=== PATIENT | female | born 1940 | race Caucasian/White ===

== ENCOUNTER 2018-10-16 23:45 | Inpatient (IN) | payer MEDICARE ==
[~2018-10-16] VITALS: Ht 165.1 cm; Wt 68.0 kg
[2018-10-16] MEDS ORDERED: acetaminophen 325mg tablet PO STA (23:54)
[2018-10-16] MEDS ORDERED: normal saline 1000ML IV soln IV ONE (23:55)
[2018-10-16] MEDS ORDERED: CefTRIAXone 2gm/D5W 50ml 50 ML IV ONE (23:55)
[2018-10-17 00:20] LABS: BASOPHILS # (AUTO) 0.1 X10'3 (0-0.2); BASOPHILS % (AUTO) 0.5 % (0-1); EOSINOPHILS # (AUTO) 0.1 X10'3 (0-0.9); EOSINOPHILS % (AUTO) 0.3 % (0-6); HEMATOCRIT 39.6 % (35.0-45.0); HEMOGLOBIN 13.3 g/dl (12.0-16.0); MEAN CORPUSCULAR HEMOGLOBIN 29.7 PG (27.0-31.0); MEAN CORPUSCULAR HGB CONC 33.6 g/dL (33.0-36.5); MEAN CORPUSCULAR VOLUME 88.4 FL (78-98); MEAN PLATELET VOLUME 6.8 FL (7.4-10.4); MONOCYTES # (AUTO) 0.9 X10'3 (0-0.9); MONOCYTES % (AUTO) 3.5 % (2-12); NEUTROPHILS # (AUTO) 22.8 X10'3 (1.8-7.7); NEUTROPHILS % (AUTO) 91.7 % (42-75); PLATELET COUNT 313 X10'3 (140-440); RED BLOOD COUNT 4.48 X10'6 (4.20-5.60); RED CELL DISTRIBUTION WIDTH 13.4 % (11.5-14.5); WHITE BLOOD COUNT 24.8 X10'3 (4.5-11.0)
[2018-10-17 00:38] LABS: ALANINE AMINOTRANSFERASE 14 U/L (12-78); ALBUMIN 3.6 G/DL (3.4-5.0); ALBUMIN/GLOBULIN RATIO 0.9 (1.1-1.5); ALKALINE PHOSPHATASE 117 IU/L (46-116); ANION GAP 11 (8-16); ASPARTATE AMINO TRANSFERASE 11 U/L (10-37); BILIRUBIN,TOTAL 0.7 MG/DL (0.1-1.0); BLOOD UREA NITROGEN 13 MG/DL (7-18); BUN/CREATININE RATIO 13.8 (6.6-38.0); CHLORIDE 104 MMOL/L (99-107); CREATININE 0.94 MG/DL (0.40-0.90); GLUCOSE 153 MG/DL (70-104); MAGNESIUM 1.8 MG/DL (1.5-2.4); POTASSIUM 3.4 MMOL/L (3.5-5.1); SODIUM 141 MMOL/L (135-145); TOTAL CARBON DIOXIDE 26.5 MMOL/L (24-32); TOTAL PROTEIN 7.7 G/DL (6.4-8.2); eGFR 57 ML/MIN
[2018-10-17] MEDS ORDERED: GABA800T11 PO (00:48)
[2018-10-17] MEDS ORDERED: TIOT4MIS5 INH (00:57)
--- NOTE | 2018-10-17 01:09 | NUR ---
Patient up to bedside commode w/o problem
[2018-10-17 01:45] LABS: CLARITY,URINE CLEAR (Clear); COLOR,URINE YELLOW (Yellow); GLUCOSE, URINE NEGATIVE (Neg); KETONES,URINE NEGATIVE (Neg); LEUKOCYTE ESTERASE ,URINE NEGATIVE (Neg); NITRITES, URINE NEGATIVE (Neg); OCCULT BLOOD,URINE MODERATE (Neg); PH,URINE 5.5 (4.8-8.0); PROTEIN,URINE NEGATIVE (Neg); UROBILINOGEN,URINE 0.2 E.U/dL (0.2-1.0)
[2018-10-17 01:50] LABS: UA COLLECTION TYPE VOIDED
[2018-10-17 01:52] LABS: BACTERIA,URINE NONE SEEN /HPF (Neg); MUCUS STRANDS FEW /LPF (Neg); SQUAMOUS EPITHELIAL CELL,UR FEW /LPF (FEW); WBC,URINE NONE SEEN /HPF (0-4)
[2018-10-17] MEDS ORDERED: potassium Cl 20 mEq SR tablet PO PRN ×2 (02:15)
[2018-10-17] MEDS ORDERED: mag hydrox/Alum hydrox/simeth 30ml oral suspension PO PRN (02:15)
[2018-10-17] MEDS ORDERED: magnesium 2GM in 50ml NS 50 ML IV PRN (02:15)
[2018-10-17] MEDS ORDERED: ondansetron/PF 4mg/2ml inj IV PRN (02:15)
[2018-10-17] MEDS ORDERED: acetaminophen 325mg tablet PO PRN (02:15)
[2018-10-17] MEDS ORDERED: magnesium Cl slow-release 64mg tablet PO PRN (02:15)
[2018-10-17] MEDS ORDERED: potassium CL 10mEq/100ml bag 100 ML IV PRN ×2 (02:15)
[2018-10-17] MEDS ORDERED: magnesium hydroxide 30ml (MOM) UD suspension PO PRN (02:15)
[2018-10-17] MEDS ORDERED: normal saline 1000ml 1,000 ML IV ONE (02:15)
[2018-10-17] MEDS ORDERED: magnesium 4gm in 100ml NS 100 ML IV PRN (02:15)
[2018-10-17 03:45] VITALS: BP 114/42
--- NOTE | 2018-10-17 03:45 | NUR ---
PATIENT ADMITTED TO ROOM 340A FROM ER FOR RIGHT SIDE PNEUMONIA, HISTORY OF COPD, CHRONIC BRONCHITIS. PLACED COMFORTABLE IN BED. VITAL SIGNS TAKEN AND RECORDED.
[2018-10-17] MEDS ORDERED: ipratropium/albuterol 3ml nebule NEB PRN (05:25)
[2018-10-17] MEDS ORDERED: azithromycin/NS 500mg/250ml 250 ML IV ONE (05:25)
[2018-10-17 06:01] LABS: BASOPHILS # (AUTO) 0.2 X10'3 (0-0.2); BASOPHILS % (AUTO) 0.5 % (0-1); EOSINOPHILS % (AUTO) 0.1 % (0-6); HEMOGLOBIN 11.9 g/dl (12.0-16.0); LYMPHOCYTES # (AUTO) 1.7 X10'3 (1.1-4.8); MEAN CORPUSCULAR HEMOGLOBIN 29.6 PG (27.0-31.0); MEAN CORPUSCULAR HGB CONC 33.2 g/dL (33.0-36.5); MEAN CORPUSCULAR VOLUME 89.2 FL (78-98); MEAN PLATELET VOLUME 7.2 FL (7.4-10.4); MONOCYTES # (AUTO) 1.1 X10'3 (0-0.9); MONOCYTES % (AUTO) 3.8 % (2-12); NEUTROPHILS # (AUTO) 26.2 X10'3 (1.8-7.7); NEUTROPHILS % (AUTO) 89.6 % (42-75); PLATELET COUNT 273 X10'3 (140-440); RED BLOOD COUNT 4.03 X10'6 (4.20-5.60); RED CELL DISTRIBUTION WIDTH 13.5 % (11.5-14.5)
[2018-10-17 06:09] LABS: ALBUMIN 2.7 G/DL (3.4-5.0); ANION GAP 10 (8-16); BLOOD UREA NITROGEN 11 MG/DL (7-18); BUN/CREATININE RATIO 12.5 (6.6-38.0); CALCIUM 7.9 MG/DL (8.5-10.1); CHLORIDE 110 MMOL/L (99-107); CREATININE 0.88 MG/DL (0.40-0.90); GLUCOSE 117 MG/DL (70-104); POTASSIUM 3.2 MMOL/L (3.5-5.1); SODIUM 144 MMOL/L (135-145); TOTAL CARBON DIOXIDE 23.8 MMOL/L (24-32); eGFR 62 ML/MIN
[2018-10-17 06:15] LABS: WHITE BLOOD COUNT 29.2 X10'3 (4.5-11.0)
--- NOTE | 2018-10-17 06:26 | NUR ---
Patient in room [facility]. I have received report from Luciano QUIROGA and had the opportunity to ask questions and assume patient care.
--- NOTE | 2018-10-17 06:30 | NUR ---
PAGED DR. TORRES AND WAS INFORMED OF CRITICAL WBC OF 29.2 AWAITING MD TO CALL BACK.
--- NOTE | 2018-10-17 06:35 | NUR ---
Problems reprioritized. Patient report given, questions answered & plan of care reviewed with ROYAL QUIROGA.
[2018-10-17] MEDS: K and/or MAG REPLACEMENT MC SCH (06:46)
[2018-10-17 07:00] VITALS: BP 121/48
[2018-10-17] MEDS: ipratropium/albuterol 3ml nebule NEB SCH ×3 (07:09→20:39)
[2018-10-17 07:28] LABS: PLATELET ESTIMATE NORMAL; TOTAL CELLS COUNTED 100
[2018-10-17] MEDS: gabapentin 100mg capsule PO SCH ×3 (08:19→21:13)
[2018-10-17] MEDS: lactobacillus rhamnosus 10,000 MMU CELLS/CAPSULE PO SCH ×2 (08:20→19:33)
[2018-10-17] MEDS: enoxaparin 40mg/0.4ml syringe SQ SCH (08:20)
[2018-10-17] MEDS: azithromycin/NS 500mg/250ml 250 ML IV SCH (08:21)
--- NOTE | 2018-10-17 09:22 | NUR ---
Sputum obtained and being sent to lab
--- NOTE | 2018-10-17 11:46 | NUR ---
Patient resistant to IS use Addendum: 10/17/18 at 1146 by Ally Hdz RN Amended: Links added.
[2018-10-17 12:18] VITALS: BP 95/56
[2018-10-17] MEDS ORDERED: MONT10TA24 PO (14:48)
[2018-10-17] MEDS ORDERED: LEVO50TA8 PO (14:48)
[2018-10-17 18:00] VITALS: BP 114/57
--- NOTE | 2018-10-17 18:25 | NUR ---
Problems reprioritized. Patient report given, questions answered & plan of care reviewed with Luciano QUIROGA.
--- NOTE | 2018-10-17 18:30 | NUR ---
Patient in room [facility]. I have received report from ROYAL QUIROGA and had the opportunity to ask questions and assume patient care.
[2018-10-17] MEDS: CefTRIAXone 2gm/D5W 50ml 50 ML IV SCH (23:04)
[2018-10-17 23:33] VITALS: BP 103/49
[2018-10-18 04:50] LABS: BASOPHILS % (AUTO) 0.4 % (0-1); EOSINOPHILS # (AUTO) 0.2 X10'3 (0-0.9); EOSINOPHILS % (AUTO) 1.3 % (0-6); HEMATOCRIT 31.5 % (35.0-45.0); HEMOGLOBIN 10.5 g/dl (12.0-16.0); LYMPHOCYTES # (AUTO) 2.3 X10'3 (1.1-4.8); LYMPHOCYTES % (AUTO) 18.6 % (21-51); MEAN CORPUSCULAR HGB CONC 33.5 g/dL (33.0-36.5); MEAN CORPUSCULAR VOLUME 89.7 FL (78-98); MEAN PLATELET VOLUME 7.5 FL (7.4-10.4); MONOCYTES # (AUTO) 0.6 X10'3 (0-0.9); MONOCYTES % (AUTO) 4.5 % (2-12); NEUTROPHILS # (AUTO) 9.3 X10'3 (1.8-7.7); NEUTROPHILS % (AUTO) 75.2 % (42-75); PLATELET COUNT 227 X10'3 (140-440); RED BLOOD COUNT 3.51 X10'6 (4.20-5.60); RED CELL DISTRIBUTION WIDTH 13.8 % (11.5-14.5); WHITE BLOOD COUNT 12.4 X10'3 (4.5-11.0)
[2018-10-18 04:54] LABS: ALBUMIN 2.6 G/DL (3.4-5.0); ANION GAP 9 (8-16); BLOOD UREA NITROGEN 8 MG/DL (7-18); BUN/CREATININE RATIO 10.1 (6.6-38.0); CALCIUM 8.7 MG/DL (8.5-10.1); CHLORIDE 113 MMOL/L (99-107); CREATININE 0.79 MG/DL (0.40-0.90); GLUCOSE 92 MG/DL (70-104); MAGNESIUM 1.9 MG/DL (1.5-2.4); POTASSIUM 3.7 MMOL/L (3.5-5.1); SODIUM 146 MMOL/L (135-145); TOTAL CARBON DIOXIDE 24.1 MMOL/L (24-32); eGFR 70 ML/MIN
--- NOTE | 2018-10-18 06:29 | NUR ---
Problems reprioritized. Patient report given, questions answered & plan of care reviewed with NICOLE QUIROGA.
--- NOTE | 2018-10-18 06:30 | NUR ---
Problems reprioritized. Patient report given, questions answered & plan of care reviewed with
[2018-10-18 07:00] VITALS: BP 128/61
[2018-10-18] MEDS: azithromycin/NS 500mg/250ml 250 ML IV SCH (07:45)
[2018-10-18] MEDS: gabapentin 100mg capsule PO SCH (08:04)
[2018-10-18] MEDS: enoxaparin 40mg/0.4ml syringe SQ SCH (08:04)
[2018-10-18] MEDS: lactobacillus rhamnosus 10,000 MMU CELLS/CAPSULE PO SCH ×2 (08:04→21:02)
[2018-10-18] MEDS: K and/or MAG REPLACEMENT MC SCH (08:10)
[2018-10-18] MEDS: ipratropium/albuterol 3ml nebule NEB SCH ×3 (08:15→20:15)
--- NOTE | 2018-10-18 10:55 | NUR ---
MD aware that UA taken is positive hemoccult. Aware of minimal drop in H&H. Unable to view urine at this time r/t pt. using toilet and dumping hat out. No new orders at this time. Will cont. to monitor on my shift.
[2018-10-18 11:10] VITALS: BP 123/60
[2018-10-18 12:00] VITALS: BP 129/56
--- NOTE | 2018-10-18 12:06 | NUR ---
Problems reprioritized. Patient report given, questions answered & plan of care reviewed with Isaias.
[2018-10-18] MEDS ORDERED: non-formulary drug (Gabapentin 1 TAB) PO SCH (13:00)
[2018-10-18] MEDS ORDERED: gabapentin 400mg capsule PO SCH (13:00)
[2018-10-18] MEDS: acetaminophen 325mg tablet PO PRN (14:08)
[2018-10-18 15:00] VITALS: BP 118/61
[2018-10-18] MEDS ORDERED: ipratropium 0.5 MG/2.5ML nebule IH SCH (15:00)
--- NOTE | 2018-10-18 17:38 | NUR ---
Student Medication Administration: For this medication-pass time frame, all medication were reviewed, dispensed, administered and documented per hospital policy by Margi Student Nurse.
--- NOTE | 2018-10-18 18:00 | NUR ---
Patient in room [facility]. I have received report from Randi QUIROGA and had the opportunity to ask questions and assume patient care.
--- NOTE | 2018-10-18 19:06 | NUR ---
Pt. in room, comfortable with no needs at this time. Problems reprioritized. Patient report given, questions answered & plan of care reviewed with Foreign QUIROGA.
[2018-10-18 20:00] VITALS: BP 136/56
[2018-10-18] MEDS ORDERED: montelukast 10mg tablet PO SCH (21:00)
[2018-10-18] MEDS: gabapentin 300mg capsule PO SCH (21:02)
[2018-10-18] MEDS: CefTRIAXone 2gm/D5W 50ml 50 ML IV SCH (23:28)
[2018-10-19] VITALS: BP 116/54
--- NOTE | 2018-10-19 06:20 | NUR ---
Problems reprioritized. Patient report given, questions answered & plan of care reviewed with Kristina QUIROGA.
[2018-10-19] MEDS ORDERED: levoTHYROXINE 25mcg tablet PO SCH (07:00)
[2018-10-19 07:17] VITALS: BP 143/75
[2018-10-19] MEDS ORDERED: non-formulary drug (Levothyroxine Sodium 1 TAB) PO SCH (07:30)
[2018-10-19] MEDS ORDERED: TIOTROPIUM BROMIDE INH SCH (08:00)
[2018-10-19] MEDS: K and/or MAG REPLACEMENT MC SCH (08:00)
[2018-10-19] MEDS: lactobacillus rhamnosus 10,000 MMU CELLS/CAPSULE PO SCH (08:06)
[2018-10-19] MEDS: gabapentin 300mg capsule PO SCH (08:06)
[2018-10-19] MEDS: acetaminophen 325mg tablet PO PRN (08:08)
[2018-10-19] MEDS: azithromycin/NS 500mg/250ml 250 ML IV SCH (08:13)
[2018-10-19] MEDS: enoxaparin 40mg/0.4ml syringe SQ SCH (08:18)
[2018-10-19] MEDS: ipratropium/albuterol 3ml nebule NEB SCH (08:46)
[2018-10-19] MEDS ORDERED: LEVO750T21 PO (09:20)
--- NOTE | 2018-10-19 11:04 | NUR ---
Patient escorted to lobby with patient's granddaughter, in her own clothing, IV removed and no blood noted on gauze, alert and oriented.
== END 2018-10-19 11:01 | disposition home or self-care (01) | DRG 871 ==
LOC: ER 23:46 → SUR 3N 10-17 03:39 → CMPBEDREQ 10-17 03:48
PROVIDERS: ADMIT Hospitalist; ATTEND Internal Medicine
DX: A41.9 Sepsis, unspecified organism (principal); J18.1 Lobar pneumonia, unspecified organism; G93.49 Other encephalopathy; J44.0 Chronic obstructive pulmonary disease with (acute) lower respiratory infection; E03.9 Hypothyroidism, unspecified; G62.9 Polyneuropathy, unspecified; R30.9 Painful micturition, unspecified; Z79.899 Other long term (current) drug therapy
CPT/HCPCS: 36415; 71045; 80048; 80053; 81001; 83605; 83735; 84145; 85025; 85610; 87040; 87070; 87081; 93005; 94640; 94760; 96365; 99285; G0378; J0456; J0696; J1650